=== PATIENT | female | born 1985 | race Two or more races ===

== ENCOUNTER → 2025-06-18 | Emergency (ER) | payer OTHER ==
[~2025-06-18] VITALS: Ht 157.5 cm; Wt 59.0 kg
[~2025-06-18] MED LIST: CEFTRIAXONE SODIUM 1,000 MG VIAL IV ONE; KETOROLAC TROMETHAMINE 30 MG VIAL IV ONE; KETOROLAC TROMETHAMINE 30 MG VIAL ONE
[2025-06-18 15:56] VITALS: BP 124/77; O2SAT 98
[2025-06-18 16:34] LABS: BASO % 0.3 % (0.1-1.2); EOS # 0.00 (0.04-0.54); EOS % 0.0 % (0.7-7.0); LYMPH # 2.02 (1.18-3.74); LYMPH % 32.3 % (19.3-53.1); MEAN PLATELET VOLUME 9.50 fl (9.4-12.4); MONO # 0.40 (0.24-0.82); MONO % 6.4 % (4.7-12.5); NEUT # 3.82 (1.56-6.13); NEUT % 61.0 % (34.0-71.1); RED CELL DISTRIBUTION WIDTH 12.0 % (11.6-14.4)
== END | disposition left against medical advice (07) ==
LOC: ER 12:24
PROVIDERS: General Practice
DX: M79.641 Pain in right hand (principal)